=== PATIENT | male | born 1995 | race Caucasian/White ===

== ENCOUNTER 2024-08-18 06:01 | Emergency (ER) | payer MEDICAID ==
[~2024-08-18] VITALS: Ht 167.6 cm; Wt 127.0 kg
[2024-08-18 06:13] VITALS: BP 130/90; PULSE 65; RESP 16; TEMP 97.4; O2SAT 96
[2024-08-18] MEDS ORDERED: IBUP-2213 PO (06:38)
[2024-08-18] MEDS ORDERED: CEPH-588 PO (06:38)
[2024-08-18] MEDS: KETOROLAC 60 MG/2 ML VIAL IM ONE (06:44)
[2024-08-18 07:16] VITALS: BP 130/90; PULSE 65; RESP 16; TEMP 97.4; O2SAT 96
== END 2024-08-18 07:16 | disposition home or self-care (01) ==
LOC: MED 06:01
DX: S80.02XA Contusion of left knee, initial encounter (principal); L03.012 Cellulitis of left finger; R03.0 Elevated blood-pressure reading, without diagnosis of hypertension; F17.200 Nicotine dependence, unspecified, uncomplicated; X58.XXXA Exposure to other specified factors, initial encounter; Y93.89 Activity, other specified; Y92.89 Other specified places as the place of occurrence of the external cause; Y99.8 Other external cause status
CPT/HCPCS: 96372; 99283; J1885